=== PATIENT | male | born 1940 | race Caucasian/White ===

== ENCOUNTER → 2019-05-28 | Outpatient (CLI) | payer MEDICARE, OTHER | END | disposition home or self-care (01) | LOC: LABWHC1 14:53 | PROVIDERS: ATTEND Radiology Radiation Oncology | DX: C61 Malignant neoplasm of prostate (principal) | CPT/HCPCS: 36415; 84153 ==

== ENCOUNTER → 2019-08-25 | Outpatient (CLI) | payer MEDICARE, OTHER | END | disposition home or self-care (01) | LOC: LABWHC1 08:32 | PROVIDERS: ATTEND Radiology Radiation Oncology | DX: C61 Malignant neoplasm of prostate (principal); Z92.3 Personal history of irradiation; Z87.891 Personal history of nicotine dependence | CPT/HCPCS: 36415; 84153 ==

== ENCOUNTER → 2019-11-24 | Outpatient (CLI) | payer MEDICARE, OTHER | END | disposition home or self-care (01) | LOC: LABWHC1 11:06 | PROVIDERS: ATTEND Radiology Radiation Oncology | DX: C61 Malignant neoplasm of prostate (principal); Z92.3 Personal history of irradiation; Z87.891 Personal history of nicotine dependence | CPT/HCPCS: 36415; 84153 ==

== ENCOUNTER → 2020-03-27 | Outpatient (CLI) | payer MEDICARE, OTHER | END | disposition home or self-care (01) | LOC: LABWHC1 08:52 | PROVIDERS: ATTEND Radiology Radiation Oncology | DX: C61 Malignant neoplasm of prostate (principal); Z92.3 Personal history of irradiation; Z87.891 Personal history of nicotine dependence | CPT/HCPCS: 36415; 84153 ==

== ENCOUNTER → 2020-07-26 | Outpatient (CLI) | payer MEDICARE, OTHER ==
[2020-07-26 10:04] LABS: Basophils % (A) 1 %; Eosinophils # (A) 0.4 k/uL (0-0.7); Eosinophils % (A) 6 %; HCT 37.1 % (39.0-53.0); HGB 12.1 gm/dL (13.0-17.5); Lymphocytes # (A) 0.8 k/uL (1.0-4.8); Lymphocytes % (A) 14 %; MCH 28.9 pg (25.0-35.0); MCHC 32.5 g/dL (31.0-37.0); MCV 88.9 fL (80.0-100.0); Mean Platelet Volume 7.9; Monocytes # (A) 0.5 k/uL (0-1.0); Monocytes % (A) 8 %; Neutrophils # (A) 4.1 k/uL (1.3-7.7); Neutrophils % (A) 70 %; Platelet Count 163 k/uL (150-450); RBC 4.17 m/uL (4.30-5.90); RDW 13.1 % (11.5-15.5); WBC 5.9 k/uL (3.8-10.6)
[2020-07-26 10:06] LABS: Appearance,Urine Clear (Clear); Bilirubin,Urine Negative (Negative); Blood,Urine Negative (Negative); Color,Urine Yellow; Glucose,Urine (UA) Negative (Negative); Ketones,Urine Negative (Negative); Leukocyte Esterase,Urine Negative (Negative); Nitrite,Urine Negative (Negative); Protein,Urine Trace (Negative); Specific Gravity,Urine 1.024 (1.001-1.035); Urobilinogen,Urine <2.0 mg/dL (<2.0)
[2020-07-26 18:09] LABS: African American GFR (CKD) 73.1 (60.0-200.0); Albumin 4.2 g/dL (3.80-4.90); Anion Gap 7.8 mmol/L (4.00-12.00); Calcium 9.6 mg/dL (8.7-10.3); Carbon Dioxide 31.2 mmol/L (21.6-31.8); Chol/HDL Ratio 2.45; Globulin 2.1 g/dL (1.6-3.3); LDL Cholesterol,Calculated 83.2 mg/dL (0.0-131.0); Non-African American GFR(CKD) 63.1 (60.0-200.0); Prostate Specific Antigen 0.5 ng/mL (0.0-6.5); Total Bilirubin 1.1 mg/dL (0.3-1.2); Total Protein 6.3 g/dL (6.2-8.2); Uric Acid 6.4 mg/dL (3.7-8.7); VLDL Calculation 13.8 mg/dL (5.00-40.00)
[2020-07-26 18:37] LABS: Hemoglobin A1C 5.7 % (4.0-6.0)
[2020-07-26 20:53] LABS: Urine Creatinine 190.6 mg/dL
== END | disposition home or self-care (01) ==
LOC: LABWHC1 09:17
PROVIDERS: ATTEND Radiology Radiation Oncology
DX: Z00.00 Encounter for general adult medical examination without abnormal findings (principal); I10 Essential (primary) hypertension; E11.65 Type 2 diabetes mellitus with hyperglycemia; C61 Malignant neoplasm of prostate; E78.5 Hyperlipidemia, unspecified; E53.8 Deficiency of other specified B group vitamins; Z92.3 Personal history of irradiation; Z87.891 Personal history of nicotine dependence
CPT/HCPCS: 36415; 80053; 80061; 81003; 82043; 82306; 82570; 82607; 83036; 83615; 84153; 84443; 84550; 85025

== ENCOUNTER 2020-11-20 13:59 | Observation (INO) | payer MEDICARE, OTHER ==
[2020-11-20] MEDS ORDERED: PANTOPRAZOLE 40 MG/10 ML VIAL IVP STA (15:14)
[2020-11-20] MEDS ORDERED: SODIUM CHLORIDE 0.9% 1,000 ML IV STA (15:14)
--- NOTE | 2020-11-20 15:20 | ED ---
GI Bleed HPI - General Chief complaint: GI Bleed Stated complaint: Sent from for rectal bleeding Time Seen by Provider: 11/20/20 15:01 Source: patient, RN notes reviewed Mode of arrival: ambulatory Limitations: no limitations - History of Present Illness Initial comments: Patient is an 80-year-old male that presents to the emergency department compla ining of bright red blood per rectum on and off for the last month. He notes that approximately one month ago he had some bright red bleeding per rectum that when we also but came back this past . He notes that he was concerned so he decided to follow-up with his primary care. He notes his primary care to rectal exam did not feel any hernias supplement come emergency room. He did note that he does have a history of prostate cancer with 28 rounds of treatment that were finished in August 2019. He notes that this is the first episode of rectal bleeding. He denied any history of other GI problems. He denied any abdominal pain chest pain shortness of breath headache nausea vomiting diarrhea constipation fever fatigue chills. - Related Data Home Medications Medication Instructions Recorded Confirmed Aspirin EC [Ecotrin Low Dose] 81 mg PO DAILY 11/20/20 11/20/20 Brimonidine Tartrate [Alphagan P 1 drop BOTH EYES DAILY@1400 11/20/20 11/20/20 0.2% Ophth Soln] Latanoprost/Pf [Latanoprost 0.005% 1 drop BOTH EYES BID@0200,1400 11/20/20 11/20/20 Eye Drop] Multivitamins, Thera [Multivitamin 1 tab PO DAILY 11/20/20 11/20/20 (formulary)] lisinopriL [Prinivil] 20 mg PO DAILY 11/20/20 11/20/20 metFORMIN HCL [metFORMIN HCL ER] 750 mg PO W/SUPPER 11/20/20 11/20/20 Allergies Allergy/AdvReac Type Severity Reaction Status Date / Time No Known Allergies Allergy Verified 11/20/20 16:41 Review of Systems ROS Statement: Those systems with pertinent positive or pertinent negative responses have been documented in the HPI. ROS Other: All systems not noted in ROS Statement are negative. Past Medical History Past Medical History: Diabetes Mellitus, Hypertension History of Any Multi-Drug Resistant Organisms: None Reported Past Surgical History: No Surgical Hx Reported Past Psychological History: No Psychological Hx Reported Smoking Status: Former smoker Past Alcohol Use History: None Reported Past Drug Use History: None Reported General Exam Limitations: no limitations General appearance: alert, in no apparent distress Head exam: Present: atraumatic, normocephalic, normal inspection Eye exam: Present: normal appearance, PERRL, EOMI. Absent: scleral icterus, conjunctival injection, periorbital swelling ENT exam: Present: normal exam, mucous membranes moist Neck exam: Present: normal inspection. Absent: tenderness, meningismus, lymphadenopathy Respiratory exam: Present: normal lung sounds bilaterally. Absent: respiratory distress, wheezes, rales, rhonchi, stridor Cardiovascular Exam: Present: regular rate, normal rhythm, normal heart sounds. Absent: systolic murmur, diastolic murmur, rubs, gallop, clicks GI/Abdominal exam: Present: soft, normal bowel sounds. Absent: distended, tenderness, guarding, rebound, rigid Rectal exam: Present: normal inspection, normal rectal tone. Absent: hemorrhoids, tenderness Extremities exam: Present: normal inspection, full ROM, normal capillary refill. Absent: tenderness, pedal edema, joint swelling, calf tenderness Neurological exam: Present: alert, oriented X3, CN II-XII intact Psychiatric exam: Present: normal affect, normal mood Skin exam: Present: warm, dry, intact, normal color. Absent: rash Course Vital Signs 11/20/20 11/20/20 11/20/20 14:11 15:20 16:56 Temperature 98.2 F Pulse Rate 83 72 77 Respiratory 18 18 18 Rate Blood Pressure 172/93 175/95 175/103 O2 Sat by Pulse 100 100 98 Oximetry 11/20/20 11/20/20 17:54 18:09 Temperature Pulse Rate 72 74 Respiratory 18 18 Rate Blood Pressure 166/97 168/92 O2 Sat by Pulse 97 100 Oximetry Medical Decision Making - Medical Decision Making 80-year-old male complaining of right red blood per rectum on and off for the last month. Labs, occult blood test, CT of the abdomen and pelvis, 1 L normal saline, 40 mg of Protonix, soil specialist ordered. Labs unremarkable from previous studies. CT of the abdomen and pelvis shows diverticulosis. Case discussed with Dr. Santana, patient will be admitted inpatient. Dr. High will accept the admit and wants to consult Dr. Benitez - Lab Data Result diagrams: 11/20/20 15:18 11/20/20 15:18 Lab Results 11/20/20 11/20/20 11/20/20 Range/Units 15:00 15:18 15:18 WBC 6.7 (3.8-10.6) k/uL RBC 4.29 L (4.30-5.90) m/uL Hgb 12.6 L (13.0-17.5) gm/dL Hct 38.0 L (39.0-53.0) % MCV 88.6 (80.0-100.0) fL MCH 29.3 (25.0-35.0) pg MCHC 33.1 (31.0-37.0) g/dL RDW 13.1 (11.5-15.5) % Plt Count 173 (150-450) k/uL MPV 7.7 Neutrophils % 69 % Lymphocytes % 16 % Monocytes % 10 % Eosinophils % 3 % Basophils % 1 % Neutrophils # 4.7 (1.3-7.7) k/uL Lymphocytes # 1.1 (1.0-4.8) k/uL Monocytes # 0.7 (0-1.0) k/uL Eosinophils # 0.2 (0-0.7) k/uL Basophils # 0.0 (0-0.2) k/uL APTT (22.0-30.0) sec Sodium (137-145) mmol/L Potassium (3.5-5.1) mmol/L Chloride (98-107) mmol/L Carbon Dioxide (22-30) mmol/L Anion Gap mmol/L BUN (9-20) mg/dL Creatinine (0.66-1.25) mg/dL Est GFR (CKD-EPI)AfAm (>60 ml/min/1.73 sqM) Est GFR (CKD-EPI)NonAf (>60 ml/min/1.73 sqM) Glucose (74-99) mg/dL Calcium (8.4-10.2) mg/dL Total Bilirubin (0.2-1.3) mg/dL AST (17-59) U/L ALT (4-49) U/L Alkaline Phosphatase (38-126) U/L Troponin I (0.000-0.034) ng/mL Total Protein (6.3-8.2) g/dL Albumin (3.5-5.0) g/dL Lipase (23-300) U/L Stool Occult Blood Positive (Negative) Blood Type O Positive Blood Type Confirm Blood Type Recheck No Previous Record Bld Type Recheck Status CABO Indicated Antibody Screen NEGATIVE Spec Expiration Date 11/23/2020231711/20/20 11/20/20 11/20/20 Range/Units 15:18 15:18 15:18 WBC (3.8-10.6) k/uL RBC (4.30-5.90) m/uL Hgb (13.0-17.5) gm/dL Hct (39.0-53.0) % MCV (80.0-100.0) fL MCH (25.0-35.0) pg MCHC (31.0-37.0) g/dL RDW (11.5-15.5) % Plt Count (150-450) k/uL MPV Neutrophils % % Lymphocytes % % Monocytes % % Eosinophils % % Basophils % % Neutrophils # (1.3-7.7) k/uL Lymphocytes # (1.0-4.8) k/uL Monocytes # (0-1.0) k/uL Eosinophils # (0-0.7) k/uL Basophils # (0-0.2) k/uL APTT 26.1 (22.0-30.0) sec Sodium 144 (137-145) mmol/L Potassium 4.2 (3.5-5.1) mmol/L Chloride 108 H (98-107) mmol/L Carbon Dioxide 28 (22-30) mmol/L Anion Gap 8 mmol/L BUN 23 H (9-20) mg/dL Creatinine 1.06 (0.66-1.25) mg/dL Est GFR (CKD-EPI)AfAm 77 (>60 ml/min/1.73 sqM) Est GFR (CKD-EPI)NonAf 66 (>60 ml/min/1.73 sqM) Glucose 75 (74-99) mg/dL Calcium 9.9 (8.4-10.2) mg/dL Total Bilirubin 0.9 (0.2-1.3) mg/dL AST 34 (17-59) U/L ALT 18 (4-49) U/L Alkaline Phosphatase 77 (38-126) U/L Troponin I <0.012 (0.000-0.034) ng/mL Total Protein 7.4 (6.3-8.2) g/dL Albumin 4.4 (3.5-5.0) g/dL Lipase 162 (23-300) U/L Stool Occult Blood (Negative) Blood Type Blood Type Confirm Blood Type Recheck Bld Type Recheck Status Antibody Screen Spec Expiration Date 11/20/20 Range/Units 15:20 WBC (3.8-10.6) k/uL RBC (4.30-5.90) m/uL Hgb (13.0-17.5) gm/dL Hct (39.0-53.0) % MCV (80.0-100.0) fL MCH (25.0-35.0) pg MCHC (31.0-37.0) g/dL RDW (11.5-15.5) % Plt Count (150-450) k/uL MPV Neutrophils % % Lymphocytes % % Monocytes % % Eosinophils % % Basophils % % Neutrophils # (1.3-7.7) k/uL Lymphocytes # (1.0-4.8) k/uL Monocytes # (0-1.0) k/uL Eosinophils # (0-0.7) k/uL Basophils # (0-0.2) k/uL APTT (22.0-30.0) sec Sodium (137-145) mmol/L Potassium (3.5-5.1) mmol/L Chloride (98-107) mmol/L Carbon Dioxide (22-30) mmol/L Anion Gap mmol/L BUN (9-20) mg/dL Creatinine (0.66-1.25) mg/dL Est GFR (CKD-EPI)AfAm (>60 ml/min/1.73 sqM) Est GFR (CKD-EPI)NonAf (>60 ml/min/1.73 sqM) Glucose (74-99) mg/dL Calcium (8.4-10.2) mg/dL Total Bilirubin (0.2-1.3) mg/dL AST (17-59) U/L ALT (4-49) U/L Alkaline Phosphatase (38-126) U/L Troponin I (0.000-0.034) ng/mL Total Protein (6.3-8.2) g/dL Albumin (3.5-5.0) g/dL Lipase (23-300) U/L Stool Occult Blood (Negative) Blood Type Blood Type Confirm O Positive Blood Type Recheck Bld Type Recheck Status Antibody Screen Spec Expiration Date - Radiology Data Radiology results: report reviewed, image reviewed CT of the abdomen and pelvis: Atypical cyst in the upper pole and interpolar right kidney. Ultrasound was recommended for reevaluation clinically indicated. Colonic diverticulosis without diverticulitis. Enlarged prostate Disposition Clinical Impression: Bright red blood per rectum, Diverticulosis Disposition: ADMITTED IP TO THIS [facility] Condition: Stable Instructions (If sedation given, give patient instructions): Gastrointestinal Bleeding (ED) Is patient prescribed a controlled substance at d/c from ED?: No Referrals: Bertha Kelly MD [Primary Care Provider] - 1-2 days Time of Disposition: 18:16
[2020-11-20 15:30] LABS: Basophils % (A) 1 %; Eosinophils # (A) 0.2 k/uL (0-0.7); Eosinophils % (A) 3 %; HGB 12.6 gm/dL (13.0-17.5); Lymphocytes # (A) 1.1 k/uL (1.0-4.8); Lymphocytes % (A) 16 %; MCH 29.3 pg (25.0-35.0); MCHC 33.1 g/dL (31.0-37.0); MCV 88.6 fL (80.0-100.0); Mean Platelet Volume 7.7; Monocytes # (A) 0.7 k/uL (0-1.0); Monocytes % (A) 10 %; Neutrophils # (A) 4.7 k/uL (1.3-7.7); Neutrophils % (A) 69 %; Platelet Count 173 k/uL (150-450); RBC 4.29 m/uL (4.30-5.90); RDW 13.1 % (11.5-15.5); WBC 6.7 k/uL (3.8-10.6)
[2020-11-20 15:42] LABS: Albumin 4.4 g/dL (3.5-5.0); Calcium 9.9 mg/dL (8.4-10.2); Potassium 4.2 mmol/L (3.5-5.1); Total Bilirubin 0.9 mg/dL (0.2-1.3); Total Protein 7.4 g/dL (6.3-8.2)
--- NOTE | 2020-11-20 16:51 | CT ---
EXAMINATION TYPE: CT abdomen pelvis w con DATE OF EXAM: 11/20/2020 COMPARISON: None HISTORY: Bright red blood in stool. CT DLP: 872 mGycm Automated exposure control for dose reduction was used. CONTRAST: Performed with IV Contrast, patient injected with 100ml mL of Isovue 300. Images obtained from the diaphragm to the floor the pelvis with IV contrast. Lung bases are clear. There is no pleural effusion. There is no pericardial effusion. There are scat tered small cysts in the liver that measure up to 2 cm. Heart is slightly enlarged. Spleen is intact. The stomach appears intact. There is no evidence of pancreatic mass. Gallbladder appears normal. The bile ducts are not dilated. There is some nodular densities involving the left adrenal gland. There is 3.6 cm complex cyst upper pole right kidney with calcifications. The wall is irregular. There is 2.6 cm exophytic cortical cyst lateral right kidney. There is normal opacification of the kidneys with no hydronephrosis. There are several cortical cysts in the left kidney that measure up to 2.5 cm. Lateral right renal cortical cy st shows some slight increased density. There is no retroperitoneal adenopathy. Ureters are not dilat ed. Delayed images show normal renal excretion without sign of obstruction. Bladder distends smoothly . The prostate is enlarged and measures 6 cm. There is no inguinal hernia. There is no free fluid in the pelvis. There is no mesenteric edema. There is no ascites or free air. There is no bowel obstruction. There a re a few sigmoid diverticula. I see no sign of diverticulitis. 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 There is no lumbar compression f racture. The bony pelvis is intact. The hip joints are intact. IMPRESSION: Atypical cyst in the upper pole and interpolar right kidney. Ultrasound is recommended for reevaluati on clinically indicated. Colonic diverticulosis without diverticulitis. Enlarged prostate..
[2020-11-20] MEDS ORDERED: lisinopriL 20 MG TAB PO STA (17:03)
[2020-11-20] MEDS ORDERED: NALOXONE 0.4 MG/ML 1 ML VIAL IV PRN (18:14)
[2020-11-20] MEDS ORDERED: SODIUM CHLORIDE 0.9% 1,000 ML IV SCH (18:15)
[2020-11-20] MEDS ORDERED: PIPERACILLIN-TAZOBACTAM 3.375 GM in SODIUM CHLORIDE 0.9% 100 ML IVPB STA (18:15)
[2020-11-20] MEDS ORDERED: ACETAMINOPHEN TAB 325 MG TAB PO PRN (18:16)
[2020-11-20] MEDS ORDERED: ONDANSETRON 4 MG/2 ML VIAL IVP PRN (18:16)
[2020-11-20] MEDS ORDERED: MORPHINE SULFATE 4 MG/ML SYRINGE IVP PRN (18:16)
[2020-11-20] MEDS: SODIUM CHLORIDE 0.9% 1,000 ML IV SCH (19:08)
[2020-11-20 20:33] LABS: Glucose,Whole Blood 66 mg/dL (75-99)
[2020-11-20] MEDS ORDERED: DEXTROSE 50% SYRINGE 50 ML IVP ONE (20:43)
[2020-11-20 21:22] LABS: Glucose,Whole Blood 116 mg/dL (75-99)
[2020-11-20] MEDS ORDERED: DEXTROSE 5%-0.9% NACL 1,000 ML IV SCH (21:30)
[2020-11-21] MEDS ORDERED: LATANOPROST 0.005% OPHTH DROPS 2.5 ML BTL BOTH EYES SCH (02:00)
[2020-11-21 03:21] VITALS: RESP 16
[2020-11-21] MEDS: SODIUM CHLORIDE 0.9% 1,000 ML IV SCH (04:52)
[2020-11-21 07:43] LABS: Glucose,Whole Blood 82 mg/dL (75-99)
[2020-11-21 08:15] VITALS: BP 173/90; PULSE 63; TEMP 97.7
[2020-11-21] MEDS ORDERED: lisinopriL 20 MG TAB PO SCH (09:00)
[2020-11-21] MEDS ORDERED: MULTIVITAMINS, THERA 1 EACH TAB PO SCH (09:00)
[2020-11-21 09:07] LABS: Basophils # (A) 0.01 X 10*3/uL (0.00-0.10); Basophils % (A) 0.2 %; Eosinophils # (A) 0.27 X 10*3/uL (0.04-0.35); Eosinophils % (A) 4.4 %; HCT 35.7 % (39.6-50.0); HGB 11.1 g/dL (13.0-17.0); Lymphocytes % (A) 14.8 %; MCH 28.4 pg (27.0-32.0); MCHC 31.1 g/dL (32.0-37.0); MCV 91.3 fL (80.0-97.0); Mean Platelet Volume 11.2 fL (9.5-12.2); Monocytes # (A) 0.79 X 10*3/uL (0.20-1.00); Neutrophils # (A) 4.09 X 10*3/uL (1.80-7.70); Neutrophils % (A) 67.4 %; Platelet Count 179 X 10*3/uL (140-440); RBC 3.91 X 10*6/uL (4.40-5.60); RDW 13.7 % (11.5-14.5); WBC 6.07 X 10*3/uL (4.50-10.00)
[2020-11-21 10:06] LABS: Albumin 3.8 g/dL (3.80-4.90); Anion Gap 8.5 mmol/L (4.00-12.00); Calcium 9.1 mg/dL (8.7-10.3); Carbon Dioxide 27.5 mmol/L (21.6-31.8); Globulin 1.9 g/dL (1.6-3.3); Non-African American GFR(CKD) 70.8 (60.0-200.0); Total Bilirubin 1.7 mg/dL (0.2-1.2); Total Protein 5.7 g/dL (6.2-8.2)
[2020-11-21 11:59] LABS: Glucose,Whole Blood 83 mg/dL (75-99)
--- NOTE | 2020-11-21 12:10 | P.GSCN ---
History of Present Illness Consult date: 11/21/20 History of present illness: CHIEF COMPLAINT: Rectal bleeding HISTORY OF PRESENT ILLNESS: This is a 80-year-old male with a known history of prostate cancer status post radiation treatment, diabetes and hypertension. Patient presented to the hospital with complaints of rectal bleeding. He has been reporting rectal bleeding intermittently over the last month. He reports that symptoms again started on . And last bloody bowel movement was noted on Friday. He denies any abdominal pain. Denies any nausea or vomiting. He went to see his primary care doctor and they recommended that he comes into the ER. He had a computed tomography scan of the abdomen and pelvis that showed colonic diverticulosis without diverticulitis. Enlarged prostate. Atypical cyst in the upper pole of the interpolar right kidney. Patient denies any fever chills or sweats. Hemoglobin 12.6 on admission. And he's had no further bleeding since Friday. PAST MEDICAL HISTORY: See list. PAST SURGICAL HISTORY: See list. MEDICATIONS: See list. ALLERGIES: See list. SOCIAL HISTORY: No illicit drug use. REVIEW OF SYSTEMS: CONSTITUTIONAL: Denies fever or chills. HEENT: Denies blurred vision, vision changes, or eye pain. Denies hemoptysis CARDIOVASCULAR: Denies chest pain or pressure. RESPIRATORY: No shortness of breath. GASTROINTESTINAL: See HPI for pertinent findings HEMATOLOGIC: Denies bleeding disorders. GENITOURINARY: Denies any blood in urine or increased urinary frequency. SKIN: Denies pruitis. Denies rash. PHYSICAL EXAM: VITAL SIGNS: Reviewed GENERAL: Well-developed in no acute distress. HEENT: No sclera icterus. Extraocular movements grossly intact. Moist buccal mucosa. Head is atraumatic, normocephalic. No nasal drainage. ABDOMEN: Soft. Nondistended. Nontender NEUROLOGIC: Alert and oriented. Cranial nerves II through XII grossly intact. LABORATORY DATA: WBC 6.7 hemoglobin 11.1 platelets 179 creatinine 1.0 IMAGING: Computed tomography scan findings as stated above ASSESSMENT: 1. Acute lower GI bleed with blood per rectum likely secondary to a diverticular bleed. Now resolved. Hemoglobin stable. PLAN: -From surgical standpoint patient can be discharged -We will outpatient follow-up in the office in one-week and at that time discuss having a colonoscopy completed Thank you for this consultation Physician Cleaner And Trimmer note has been reviewed by physician. Signing provider agrees with the documented findings, assessment, and plan of care. Past Medical History Past Medical History: Cancer, Diabetes Mellitus, Hypertension Additional Past Medical History / Comment(s): pt states hx of prostate CA. History of Any Multi-Drug Resistant Organisms: None Reported Past Surgical History: No Surgical Hx Reported Past Anesthesia/Blood Transfusion Reactions: No Reported Reaction Past Psychological History: No Psychological Hx Reported Smoking Status: Former smoker Past Alcohol Use History: None Reported Additional Past Alcohol Use History / Comment(s): pt states he smoked until he was 23 years old. Past Drug Use History: None Reported Medications and Allergies Home Medications Medication Instructions Recorded Confirmed Type Aspirin EC [Ecotrin Low Dose] 81 mg PO DAILY 11/20/20 11/20/20 History Brimonidine Tartrate [Alphagan P 1 drop BOTH EYES DAILY@1400 11/20/20 11/20/20 History 0.2% Ophth Soln] Latanoprost/Pf [Latanoprost 0.005% 1 drop BOTH EYES BID@0200,1400 11/20/20 11/20/20 History Eye Drop] Multivitamins, Thera [Multivitamin 1 tab PO DAILY 11/20/20 11/20/20 History (formulary)] lisinopriL [Prinivil] 20 mg PO DAILY 11/20/20 11/20/20 History metFORMIN HCL [metFORMIN HCL ER] 750 mg PO W/SUPPER 11/20/20 11/20/20 History Allergies Allergy/AdvReac Type Severity Reaction Status Date / Time No Known Allergies Allergy Verified 11/20/20 16:41 Surgical - Exam Vital Signs Temp Pulse Resp BP Pulse Ox 98.2 F 83 18 172/93 100 11/20/20 14:11 11/20/20 14:11 11/20/20 14:11 11/20/20 14:11 11/20/20 14:11 Results - Labs 11/21/20 05:07 11/21/20 05:07 Abnormal Lab Results - Last 24 Hours (Table) 11/20/20 11/20/20 11/20/20 Range/Units 15:18 15:18 19:12 RBC 4.29 L (4.30-5.90) m/uL Hgb 12.6 L (13.0-17.5) gm/dL Hct 38.0 L (39.0-53.0) % MCHC (32.0-37.0) g/dL ESR 17 H (0-15) mm/hr Chloride 108 H (98-107) mmol/L BUN 23 H (9-20) mg/dL POC Glucose (mg/dL) (75-99) mg/dL Total Bilirubin (0.2-1.2) mg/dL Total Protein (6.2-8.2) g/dL 11/20/20 11/20/20 11/21/20 Range/Units 20:32 21:20 05:07 RBC 3.91 L (4.30-5.90) m/uL Hgb 11.1 L (13.0-17.5) gm/dL Hct 35.7 L (39.0-53.0) % MCHC 31.1 L (32.0-37.0) g/dL ESR (0-15) mm/hr Chloride (98-107) mmol/L BUN (9-20) mg/dL POC Glucose (mg/dL) 66 L 116 H (75-99) mg/dL Total Bilirubin (0.2-1.2) mg/dL Total Protein (6.2-8.2) g/dL 11/21/20 Range/Units 05:07 RBC (4.30-5.90) m/uL Hgb (13.0-17.5) gm/dL Hct (39.0-53.0) % MCHC (32.0-37.0) g/dL ESR (0-15) mm/hr Chloride (98-107) mmol/L BUN (9-20) mg/dL POC Glucose (mg/dL) (75-99) mg/dL Total Bilirubin 1.7 H (0.2-1.2) mg/dL Total Protein 5.7 L (6.2-8.2) g/dL Diabetes panel 11/20/20 11/21/20 Range/Units 15:18 05:07 Sodium 144 144 (137-145) mmol/L Potassium 4.2 4.0 (3.5-5.1) mmol/L Chloride 108 H 108 (98-107) mmol/L Carbon Dioxide 28 27.5 (22-30) mmol/L BUN 23 H 15.0 (9-20) mg/dL Creatinine 1.06 1.0 (0.66-1.25) mg/dL Glucose 75 77 (74-99) mg/dL Calcium 9.9 9.1 (8.4-10.2) mg/dL AST 34 28 (17-59) U/L ALT 18 18 (4-49) U/L Alkaline Phosphatase 77 65 (38-126) U/L Total Protein 7.4 5.7 L (6.3-8.2) g/dL Albumin 4.4 3.80 (3.5-5.0) g/dL Calcium panel 11/20/20 11/21/20 Range/Units 15:18 05:07 Calcium 9.9 9.1 (8.4-10.2) mg/dL Albumin 4.4 3.80 (3.5-5.0) g/dL Pituitary panel 11/20/20 11/21/20 Range/Units 15:18 05:07 Sodium 144 144 (137-145) mmol/L Potassium 4.2 4.0 (3.5-5.1) mmol/L Chloride 108 H 108 (98-107) mmol/L Carbon Dioxide 28 27.5 (22-30) mmol/L BUN 23 H 15.0 (9-20) mg/dL Creatinine 1.06 1.0 (0.66-1.25) mg/dL Glucose 75 77 (74-99) mg/dL Calcium 9.9 9.1 (8.4-10.2) mg/dL Adrenal panel 11/20/20 11/21/20 Range/Units 15:18 05:07 Sodium 144 144 (137-145) mmol/L Potassium 4.2 4.0 (3.5-5.1) mmol/L Chloride 108 H 108 (98-107) mmol/L Carbon Dioxide 28 27.5 (22-30) mmol/L BUN 23 H 15.0 (9-20) mg/dL Creatinine 1.06 1.0 (0.66-1.25) mg/dL Glucose 75 77 (74-99) mg/dL Calcium 9.9 9.1 (8.4-10.2) mg/dL Total Bilirubin 0.9 1.7 H (0.2-1.3) mg/dL AST 34 28 (17-59) U/L ALT 18 18 (4-49) U/L Alkaline Phosphatase 77 65 (38-126) U/L Total Protein 7.4 5.7 L (6.3-8.2) g/dL Albumin 4.4 3.80 (3.5-5.0) g/dL
[2020-11-21] MEDS ORDERED: amLODIPine 5 MG TAB PO STA (12:36)
--- NOTE | 2020-11-21 12:37 | P.HPIM ---
History of Present Illness H&P Date: 11/21/20 (This document was old with's H&P and discharge summary) 80 years old -[place] male with past medical history of postoperative prostate cancer status post radiation, type 2 diabetes, hypertension comes in with complaints of rectal bleeding. Patient had last episode 1 month ago. He was doing well until Friday when his symptoms started he had 1 large bloody bowel movement. Patient had another episode on Friday. He mentioned it to one of his friends asked him to see the primary care physician. Patient saw Dr. Richter on Friday who was in the hospital. Patient denies any dizziness, any recent episodes of bleeding since in the hospital. He denies any history of black stools. Patient denies any history of constipation. Patient denies any chest pain or shortness of breath or palpitation . Vitals reviewed patient is afebrile pulse 63 respiratory rate 16 blood pressure 173/90 loss oxygen saturation 99% on room air. Labs reviewed patient a WBC of 6 hemoglobin 11.1 platelet 179 CMP is unremarkable. Patient did have a low blood sugar of 66 currently normal. Review of Systems Constitutional: Denies chills, Denies fever, Denies lethargy, Denies malaise, Denies poor appetite, Denies weakness, Denies weight loss Eyes: denies decreased vision, denies diplopia, denies discharge, denies pain Ears: deny: decreased hearing Ears, nose, mouth and throat: Denies dental pain, Denies headache, Denies nasal discharge, Denies nose pain Cardiovascular: Denies chest pain, Denies decreased exercise tolerance, Denies edema, Denies high blood pressure, Denies irregular heart beat, Denies palpitations, Denies paroxysmal nocturnal dyspnea, Denies rapid heart beat, Denies shortness of breath Respiratory: Denies congestion, Denies cough, Denies cough with sputum, Denies dyspnea, Denies home oxygen, Denies wheezing Gastrointestinal: Denies abdominal pain, Denies change in bowel habits, Denies coffee ground emesis, Denies early satiety, Denies excessive gas, Denies heartburn, Denies hematemesis, positive for hematochezia, Denies loss of appetite, Denies nausea, Denies vomiting Genitourinary: Denies dysuria, Denies flank pain, Denies kidney stones, Denies menorrhagia, Denies urgency, Denies urinary frequency Musculoskeletal: Denies gait dysfunction, Denies limitation of motion, Denies morning stiffness, Denies muscle cramps Integumentary: Denies rash, Denies wounds, Denies brittle nails, Denies change in hair/nails, Denies darkening of skin Neurological: Denies balance difficulties, Denies change in speech, Denies do uble vision, Denies gait dysfunction, Denies loss of vision, Denies motor disturbance, Denies numbness, Denies paralysis, Denies paresthesias, Denies seizures Psychiatric: Denies anxiety, Denies depression Endocrine: Denies excessive sweating, Denies excessive thirst, Denies high blood sugars, Denies palpitations Hematologic/Lymphatic: Denies easy bruising, Denies lymphadenopathy Past Medical History Past Medical History: Cancer, Diabetes Mellitus, Hypertension Additional Past Medical History / Comment(s): pt states hx of prostate CA. History of Any Multi-Drug Resistant Organisms: None Reported Past Surgical History: No Surgical Hx Reported Past Anesthesia/Blood Transfusion Reactions: No Reported Reaction Past Psychological History: No Psychological Hx Reported Smoking Status: Former smoker Past Alcohol Use History: None Reported Additional Past Alcohol Use History / Comment(s): pt states he smoked until he was 23 years old. Past Drug Use History: None Reported Medications and Allergies Home Medications Medication Instructions Recorded Confirmed Type Aspirin EC [Ecotrin Low Dose] 81 mg PO DAILY 11/20/20 11/20/20 History Brimonidine Tartrate [Alphagan P 1 drop BOTH EYES DAILY@1400 11/20/20 11/20/20 History 0.2% Ophth Soln] Latanoprost/Pf [Latanoprost 0.005% 1 drop BOTH EYES BID@0200,1400 11/20/20 11/20/20 History Eye Drop] Multivitamins, Thera [Multivitamin 1 tab PO DAILY 11/20/20 11/20/20 History (formulary)] lisinopriL [Prinivil] 20 mg PO DAILY 11/20/20 11/20/20 History metFORMIN HCL [metFORMIN HCL ER] 750 mg PO W/SUPPER 11/20/20 11/20/20 History Allergies Allergy/AdvReac Type Severity Reaction Status Date / Time No Known Allergies Allergy Verified 11/20/20 16:41 Physical Exam Vitals: Vital Signs Temp Pulse Pulse Resp BP BP Pulse Ox 11/21/20 07:00 97.7 F 63 16 173/90 11/21/20 01:41 98.0 F 68 16 184/98 99 11/20/20 20:17 98.1 F 69 18 197/95 98 11/20/20 20:00 69 18 11/20/20 19:51 98.2 F 71 18 189/109 100 11/20/20 18:59 71 18 189/109 100 11/20/20 18:09 74 18 168/92 100 11/20/20 17:54 72 18 166/97 97 11/20/20 16:56 77 18 175/103 98 11/20/20 15:20 72 18 175/95 100 11/20/20 14:11 98.2 F 83 18 172/93 100 Intake and Output 11/20/20 11/21/20 11/21/20 22:59 06:59 14:59 Intake Total 900 Balance 900 Intake: Intake, IV Titration 900 Amount Dextrose 5%-0.9% NaCl 1, 900 000 ml @ 75 mls/hr IV . [id number] [facility] Rx#:[id number] Other: Voiding Method Toilet # Voids 1 3 Weight 81.647 kg - Constitutional General appearance: cooperative, no acute distress, obese - EENT Eyes: anicteric sclerae, PERRLA, normal appearance ENT: hearing grossly normal - Neck Neck: no lymphadenopathy, normal ROM, no other, no rigidity, no stridor, no thyromegaly - Respiratory Respiratory: bilateral: CTA, negative: diminished, dullness, rales, rhonchi - Cardiovascular Rhythm: regular Heart sounds: normal: S1, S2 Abnormal Heart Sounds: no systolic murmur, no diastolic murmur, no rub, no S3 Gallop, no S4 Gallop, no click, no other - Gastrointestinal General gastrointestinal: normal bowel sounds, soft - Integumentary Integumentary: no rash - Neurologic Neurologic: CNII-XII intact - Musculoskeletal Musculoskeletal: gait normal, strength equal bilaterally - Psychiatric Psychiatric: A&O x's 3, appropriate affect Results CBC & Chem 7: 11/21/20 05:07 11/21/20 05:07 Labs: Abnormal Lab Results - Last 24 Hours (Table) 11/20/20 11/20/20 11/20/20 Range/Units 15:18 15:18 19:12 RBC 4.29 L (4.30-5.90) m/uL Hgb 12.6 L (13.0-17.5) gm/dL Hct 38.0 L (39.0-53.0) % MCHC (32.0-37.0) g/dL ESR 17 H (0-15) mm/hr Chloride 108 H (98-107) mmol/L BUN 23 H (9-20) mg/dL POC Glucose (mg/dL) (75-99) mg/dL Total Bilirubin (0.2-1.2) mg/dL Total Protein (6.2-8.2) g/dL 11/20/20 11/20/20 11/21/20 Range/Units 20:32 21:20 05:07 RBC 3.91 L (4.30-5.90) m/uL Hgb 11.1 L (13.0-17.5) gm/dL Hct 35.7 L (39.0-53.0) % MCHC 31.1 L (32.0-37.0) g/dL ESR (0-15) mm/hr Chloride (98-107) mmol/L BUN (9-20) mg/dL POC Glucose (mg/dL) 66 L 116 H (75-99) mg/dL Total Bilirubin (0.2-1.2) mg/dL Total Protein (6.2-8.2) g/dL 11/21/20 Range/Units 05:07 RBC (4.30-5.90) m/uL Hgb (13.0-17.5) gm/dL Hct (39.0-53.0) % MCHC (32.0-37.0) g/dL ESR (0-15) mm/hr Chloride (98-107) mmol/L BUN (9-20) mg/dL POC Glucose (mg/dL) (75-99) mg/dL Total Bilirubin 1.7 H (0.2-1.2) mg/dL Total Protein 5.7 L (6.2-8.2) g/dL Thrombosis Risk Factor Assmnt - DVT/VTE Prophylaxis DVT/VTE Prophylaxis: Mechanical Prophylaxis ordered - Choose All That Apply Any of the Below Risk Factors Present?: No Other Risk Factors: Yes Each Risk Factor Represents 3 Points: Age 75 years or older Other congenital or acquired thrombophilia - If yes, enter type in comment: No Thrombosis Risk Factor Assessment Total Risk Factor Score: 3 Thrombosis Risk Factor Assessment Level: Moderate Risk Assessment and Plan Plan: #1 acute lower GI bleed likely secondary to diverticulum. No evidence of infections. Antibiotics not indicated. Patient was seen by surgery and was cleared for outpatient follow-up #2 hypertension patient takes lisinopril 20 mg by mouth daily. Will add Norvasc at 5 mg for blood pressure is patient's blood pressure is high #3 type 2 diabetes metformin resumed at 750 with supper #4 history of glaucoma continue brimonidine and latanoprost [place] #5 history of prostate cancer status post radiation stable #6 CODE STATUS full code #7 DVT prophylaxis increase ambulation #8 disposition patient will be discharged today
[2020-11-21] MEDS ORDERED: BRIMONIDINE TARTRATE 0.2% DROPS 5 ML BTL BOTH EYES SCH (14:00)
== END 2020-11-21 13:36 | disposition home or self-care (01) ==
LOC: EC 13:59 → 6NMEDSUR 18:16
PROVIDERS: ADMIT Internal Medicine; ATTEND Internal Medicine
DX: K57.31 Diverticulosis of large intestine without perforation or abscess with bleeding (principal); N40.0 Benign prostatic hyperplasia without lower urinary tract symptoms; E11.9 Type 2 diabetes mellitus without complications; I10 Essential (primary) hypertension; N28.1 Cyst of kidney, acquired; H40.9 Unspecified glaucoma; Z20.822 Contact with and (suspected) exposure to COVID-19; Z79.82 Long term (current) use of aspirin; Z79.84 Long term (current) use of oral hypoglycemic drugs; Z79.899 Other long term (current) drug therapy; Z92.3 Personal history of irradiation; Z85.46 Personal history of malignant neoplasm of prostate; Z87.891 Personal history of nicotine dependence
CPT/HCPCS: 96361 ×2; 96365; 96375; 99285; 36415; 86900; 86901; 80053 ×2; 85652; 83605; 83690; 84484; 85025 ×2; 85730; 86850; 86140; 82272; 87636; 74177; G0378 ×2; J2543; C9113; Q9967

== ENCOUNTER → 2021-01-23 | Outpatient (CLI) | payer MEDICARE, OTHER ==
[2021-01-23 16:59] LABS: Basophils # (A) 0.02 X 10*3/uL (0.00-0.10); Basophils % (A) 0.3 %; Eosinophils # (A) 0.23 X 10*3/uL (0.04-0.35); Eosinophils % (A) 3.9 %; HCT 36.8 % (39.6-50.0); HGB 11.4 g/dL (13.0-17.0); Lymphocytes # (A) 1.05 X 10*3/uL (0.90-5.00); MCH 28.2 pg (27.0-32.0); MCV 91.1 fL (80.0-97.0); Monocytes # (A) 0.65 X 10*3/uL (0.20-1.00); Monocytes % (A) 11.1 %; Neutrophils # (A) 3.88 X 10*3/uL (1.80-7.70); Neutrophils % (A) 66.5 %; Platelet Count 200 X 10*3/uL (140-440); RBC 4.04 X 10*6/uL (4.40-5.60); RDW 13.7 % (11.5-14.5); WBC 5.84 X 10*3/uL (4.50-10.00)
[2021-01-23 19:08] LABS: Hemoglobin A1C 5.8 % (4.0-6.0)
[2021-01-23 21:01] LABS: % Iron Saturation 23.68 (15.00-50.00); African American GFR (CKD) 73.1 (60.0-200.0); Albumin 4.2 g/dL (3.80-4.90); Albumin/Globulin Ratio 1.83 (1.60-3.17); Anion Gap 8.7 mmol/L (4.00-12.00); BUN/Creat Ratio 22.73 Ratio (12.00-20.00); Calcium 9.6 mg/dL (8.7-10.3); Carbon Dioxide 27.3 mmol/L (21.6-31.8); Chol/HDL Ratio 2.62; Globulin 2.3 g/dL (1.6-3.3); LDL Cholesterol,Calculated 87.8 mg/dL (0.0-131.0); Non-African American GFR(CKD) 63.1 (60.0-200.0); Potassium 4.4 mmol/L (3.5-5.5); Total Bilirubin 1.1 mg/dL (0.2-1.2); Total Protein 6.5 g/dL (6.2-8.2); VLDL Calculation 14.2 mg/dL (5.00-40.00)
[2021-01-23 21:08] LABS: T4, Free (Free Thyroxine) 1.2 ng/dL (0.80-1.80)
== END | disposition home or self-care (01) ==
LOC: LABWHC1 10:17
PROVIDERS: ATTEND Radiology Radiation Oncology
DX: C61 Malignant neoplasm of prostate (principal); E11.65 Type 2 diabetes mellitus with hyperglycemia; K92.2 Gastrointestinal hemorrhage, unspecified; E78.5 Hyperlipidemia, unspecified; Z92.3 Personal history of irradiation; Z87.891 Personal history of nicotine dependence; R97.20 Elevated prostate specific antigen [PSA]
CPT/HCPCS: 36415; 80053; 80061; 82550; 82607; 83036; 83540; 83550; 84153; 84439; 84443; 85025

== ENCOUNTER → 2021-07-30 | Outpatient (CLI) | payer MEDICARE, OTHER | END | disposition home or self-care (01) | LOC: LABWHC1 08:37 | PROVIDERS: ATTEND Radiology Radiation Oncology | DX: C61 Malignant neoplasm of prostate (principal); Z92.3 Personal history of irradiation; Z87.891 Personal history of nicotine dependence | CPT/HCPCS: 36415; 84153 ==

== ENCOUNTER → 2022-01-24 | Outpatient (CLI) | payer MEDICARE, OTHER | END | disposition home or self-care (01) | LOC: LABWHC1 08:43 | PROVIDERS: ATTEND Radiology Radiation Oncology | DX: Z08 Encounter for follow-up examination after completed treatment for malignant neoplasm (principal); C61 Malignant neoplasm of prostate; Z85.46 Personal history of malignant neoplasm of prostate; Z92.3 Personal history of irradiation; Z87.891 Personal history of nicotine dependence | CPT/HCPCS: 36415; 84153 ==

== ENCOUNTER → 2022-07-26 | Outpatient (CLI) | payer MEDICARE, OTHER | END | disposition home or self-care (01) | LOC: LABWHC1 09:14 | PROVIDERS: ATTEND Radiology Radiation Oncology | DX: Z08 Encounter for follow-up examination after completed treatment for malignant neoplasm (principal); C61 Malignant neoplasm of prostate; Z85.46 Personal history of malignant neoplasm of prostate; Z92.3 Personal history of irradiation; Z87.891 Personal history of nicotine dependence | CPT/HCPCS: 36415; 84153 ==

== ENCOUNTER 2023-05-07 07:08 | Day surgery (SDC) | payer MEDICARE, OTHER ==
[2023-05-06 11:37] VITALS: BMI 24.3
[2023-05-07] MEDS: LACTATED RINGERS 1,000 ML IV SCH ×2 (07:40→08:25)
[2023-05-07 07:54] LABS: Glucose,Whole Blood 80 mg/dL (70-110)
[2023-05-07 08:03] VITALS: RESP 18; TEMP 97
[2023-05-07] MEDS ORDERED: LIDOCAINE 1% INJ 10MG/ML (20 ML MDV) ONE (08:26)
[2023-05-07] MEDS ORDERED: PROPOFOL 10 MG/ML 20 ML VIAL IV ONE (08:26)
[2023-05-07] MEDS ORDERED: LABETALOL 5 MG/ML VIAL MDV ONE (08:26)
--- NOTE | 2023-05-07 08:54 | P.PCN ---
Date of Procedure: 05/07/23 Procedure(s) Performed: Brief history: Patient is a pleasant a 83-year-old male scheduled for an elective upper endoscopy as well as colonoscopy as a part of evaluation of GERD and intermittent rectal bleeding Procedure performed: Esophagogastroduodenoscopy with biopsy Colonoscopy Preoperative diagnosis: GERD Rectal bleeding Anesthesia: [facility] Procedure: After informed consent was obtained from the patient was brought into the endoscopy unit and IV sedation was administered by anesthesia under continuous monitoring. Initially upper endoscopy was done. The Olympus GF 160 video endoscope was inserted inserted into the mouth and esophagus intubated without any difficulty and was gradually advanced into the stomach and duodenum and carefully examined. The bulb and second part of the duodenum appeared normal. The scope was then withdrawn into the stomach adequately insufflated with air a nd upon careful examination the antrum had mild gastritis and biopsies were done from this area. Mucosa of the body, cardia and fundus appeared normal. The scope was then withdrawn into the esophagus. The GE junction was located at 40 cm to the incisors. It appeared regular with no erythema erosions or ulcerations. Rest of the esophagus appeared normal. Patient tolerated the procedure well. At this time the patient continued to remain sedation. Initial digital rectal examination was normal. Olympus CF 160 video colonoscope was then inserted into the rectum and gradually advanced to the cecum without any difficulty. Careful examination was performed as the scope was gradually being withdrawn. The prep was excellent. The cecum, normal. In the ascending colon there was a 1 cm po lyp removed by snare polypectomy. Rest of the ascending colon, transverse colon, descending colon, sigmoid colon and rectum appeared normal. The distal rectum there were multiple telangiectasia with some oozing identified consistent with radiation proctitis and argon plasma coagulation was performed with good hemostasis. Scattered sigmoid diverticulosis seen. Retroflexion was performed in the rectum and scattered telangiectasias with identified just proximal to the dentate line. were noted. Patient tolerated the procedure well. Impression: 1. Upper endoscopy revealed mild antral gastritis and small hiatal hernia 2. Colonoscopy revealed : a) 1 cm ascending colon polyp status post polypectomy b)multiple was in 2089 ectasia in the distal rectum consistent with radiation proctitis status post argon plasma coagulation as described above. c) Sigmoid diverticulosis Recommendations: Findings of this examination were discussed with the patient as well as his family. He was advised to follow with the biopsy results. If the biopsy of the colon polyp reveals adenoma he can have a repeat colonoscopy in 3 years. He'll be seen in office in 3 months.
[2023-05-07 09:02] VITALS: PULSE 82
[2023-05-07 09:22] VITALS: BP 137/84
== END 2023-05-07 09:47 | disposition home or self-care (01) ==
LOC: ORWHC2ENDO 07:08
PROVIDERS: ATTEND Internal Medicine Gastroenterology
DX: D12.2 Benign neoplasm of ascending colon (principal); K29.50 Unspecified chronic gastritis without bleeding; K57.30 Diverticulosis of large intestine without perforation or abscess without bleeding; K21.9 Gastro-esophageal reflux disease without esophagitis; K62.7 Radiation proctitis; K44.9 Diaphragmatic hernia without obstruction or gangrene; I10 Essential (primary) hypertension; E11.9 Type 2 diabetes mellitus without complications; Z79.84 Long term (current) use of oral hypoglycemic drugs; Z85.46 Personal history of malignant neoplasm of prostate; Z79.899 Other long term (current) drug therapy; Z98.890 Other specified postprocedural states
CPT/HCPCS: 88305; 45385; 43239; J2001; J2704; J1920; 45388

== ENCOUNTER → 2023-05-13 | Outpatient (CLI) | payer MEDICARE, OTHER ==
[2023-05-13 15:30] LABS: Basophils # (A) 0.03 X 10*3/uL (0.00-0.10); Basophils % (A) 0.4 %; Eosinophils # (A) 0.25 X 10*3/uL (0.04-0.35); Eosinophils % (A) 3.1 %; HCT 38.6 % (39.6-50.0); HGB 12.1 d/dL (13.0-17.0); Lymphocytes # (A) 1.09 X 10*3/uL (0.90-5.00); Lymphocytes % (A) 13.4 %; MCH 28.2 pg (27.0-32.0); MCHC 31.3 d/dL (32.0-37.0); Mean Platelet Volume 12.1 FL (9.5-12.2); Monocytes % (A) 12.3 %; NRBC Per 100 WBC 0 X 10*3/uL (0.00-0.01); Neutrophils # (A) 5.72 X 10*3/uL (1.80-7.70); Neutrophils % (A) 70.6 %; Platelet Count 237 X 10*3/uL (140-440); RBC 4.29 X 10*6/uL (4.40-5.60); RDW 13.2 % (11.5-14.5); WBC 8.11 X 10*3/uL (4.50-10.00)
[2023-05-13 16:13] LABS: % Iron Saturation 11.85 (15.00-50.00); Calcium 10.2 mg/dL (8.7-10.3); Carbon Dioxide 26.9 mmol/L (21.6-31.8); Chloride 106 mmol/L (96-109); Glucose 117 mg/dL (70-110); Iron 34 UG/DL (65-175); Potassium 4.3 mmol/L (3.5-5.5); Sodium 145 mmol/L (135-145); Total Iron Binding Capacity 287 UG/DL (228-460)
== END | disposition home or self-care (01) ==
LOC: LABWHC1 10:42
PROVIDERS: ATTEND Family Medicine
DX: K92.2 Gastrointestinal hemorrhage, unspecified (principal); D53.9 Nutritional anemia, unspecified
CPT/HCPCS: 36415; 80048; 82728; 83540; 83550; 85025; 85045; 86880

== ENCOUNTER → 2023-05-23 | Outpatient (CLI) | payer MEDICARE, OTHER | END | disposition home or self-care (01) | LOC: LABWHC1 09:39 | PROVIDERS: ATTEND Radiology Radiation Oncology | DX: Z08 Encounter for follow-up examination after completed treatment for malignant neoplasm (principal); C61 Malignant neoplasm of prostate; Z85.46 Personal history of malignant neoplasm of prostate; Z92.3 Personal history of irradiation; Z87.891 Personal history of nicotine dependence | CPT/HCPCS: 36415; 84153 ==

== ENCOUNTER → 2024-05-21 | Outpatient (CLI) | payer MEDICARE, OTHER | END | disposition home or self-care (01) | LOC: LABWHC1 10:46 | PROVIDERS: ATTEND Radiology Radiation Oncology | DX: Z08 Encounter for follow-up examination after completed treatment for malignant neoplasm (principal); C61 Malignant neoplasm of prostate; Z85.46 Personal history of malignant neoplasm of prostate; Z92.3 Personal history of irradiation; Z87.891 Personal history of nicotine dependence | CPT/HCPCS: 36415; 84153 ==